=== PATIENT | male | born 1990 | race Caucasian/White ===

== ENCOUNTER 2017-03-29 13:05 | Emergency (ER) | payer BC | END 2017-03-29 13:40 | disposition left against medical advice (07) | LOC: UCEAST 13:05 | DX: H92.09 Otalgia, unspecified ear (principal); Z53.21 Procedure and treatment not carried out due to patient leaving prior to being seen by health care provider ==

== ENCOUNTER 2017-03-29 13:40 | Emergency (ER) | payer BC ==
[2017-03-29 14:32] VITALS: BP 133/79
--- NOTE | 2017-03-29 14:54 | UC ---
Ear Complaint HPI - HPI Summary HPI Summary: C/O ear plugged on right but no pain or fevers. Some congestion, with cough, sore throat is better. - History of Current Complaint Chief Complaint: UCEar Stated Complaint: POSSIBLE EAR INFECTION Time Seen by Provider: 03/29/17 14:48 Hx Obtained From: Patient Onset/Duration: Sudden Onset, Lasting Days - 2, Still Present Severity Initially: Mild Severity Currently: Mild Pain Intensity: 0 Associated Signs/Symptoms: Positive: Hearing Loss, URI Symptoms Related History: Seasonal Allergies - Allergies/Home Medications Allergies/Adverse Reactions: Allergies Allergy/AdvReac Type Severity Reaction Status Date / Time No Known Allergies Allergy Verified 03/29/17 14:29 Home Medications: Home Medications NK [No Home Medications Reported] 03/29/17 [History Confirmed 03/29/17] PMH/Surg Hx/FS Hx/Imm Hx Previously Healthy: Yes Other History Of: Negative For: HIV, Hepatitis B, Hepatitis C - Surgical History Surgical History: Yes Surgery Procedure, Year, and Place: Appendectomy, ear tubes x 2 - Family History Known Family History: Negative: Cardiac Disease, Hypertension, Diabetes, Renal Disease, Seizure Disorder, Blood Disorder - Social History Occupation: Employed Full-time Lives: Dormitory/Roommates Alcohol Use: Weekly Alcohol Amount: 2 beers / day Substance Use Type: None Smoking Status (MU): Never Smoked Tobacco Have You Smoked in the Last Year: No - Immunization History Most Recent Influenza Vaccination: Not the Season Review of Systems ENT: Sore Throat, Ear Ache, Nasal Discharge, Sinus Congestion - pressure but no pain. Respiratory: Cough Is Patient Immunocompromised?: No All Other Systems Reviewed And Are Negative: Yes Physical Exam Triage Information Reviewed: Yes Appearance: Well-Appearing, No Pain Distress, Well-Nourished Vital Signs: Initial Vital Signs Temp 98.5 F 03/29/17 14:28 Pulse 78 03/29/17 14:28 Resp 14 03/29/17 14:28 BP 133/79 03/29/17 14:28 Pulse Ox 97 03/29/17 14:28 Vital Signs Reviewed: Yes Eyes: Positive: Conjunctiva Inflamed - mild ENT: Positive: Pharynx normal, Nasal congestion - with allergic changes, TM bulging - AD Dental Exam: Normal Neck exam: Normal Respiratory Exam: Normal Cardiovascular Exam: Normal Abdominal Exam: Normal Musculoskeletal Exam: Normal Neurological Exam: Normal Psychological Exam: Normal Skin Exam: Normal Ear Complaint Course/Dx - Differential Dx/Diagnosis Differential Diagnosis/HQI/PQRI: Cerumen Impaction, Otitis Externa, Otitis Media , URI Provider Diagnoses: Acute URI. Allergic rhinitis. Eustachian tube dysfunction bilaterally Discharge - Discharge Plan Condition: Stable Disposition: HOME Patient Education Materials: Upper Respiratory Infection (ED), Allergic Rhinitis (ED) Referrals: Non Staff,Doctor [Primary Care Provider] - Additional Instructions: NASAL SPRAYS AND DROPS: Afrin in the PUMP/ MIST bottle (Get generic 12 hours nasal decongestant spray). Tilt your head down and look at the floor while doing a strong sniff with the spray. Decongestant nasal sprays and drops often give dramatic relief from congestion. They are often recommended for patients with sinus infection to assist with sinus drainage. Persons with high blood pressure should consult the doctor before using these nasal sprays. Afrin and Toro-Synephrine are common [id number] preparations. They should not be used for more than five days, as "rebound" congestion can occur - - the congestion flares as the drug wears off. A way of dealing with this rebound congestion problem is to medicate only one nostril each time, allowing the other nostril to recover from the medicine' s effects. When you no longer need the drug during the day, spray only one nostril each night. This helps you sleep well without severe rebound congestion. Call the doctor if you develop severe headache, palpitations, or chest pain. NEILMED SINUS RINSE: CHECK OUT AT [employer] Saline nasal wash helps with mucous, allergies and congestion. It can be used up to twice a day or only as needed. Use lukewarm tap water. It does not have to be sterilized or distilled water. Do 1/3 on each side and snort out of both nostrils. Repeat the process with 1/6 of the bottle on each side with snorting in between to finish the solution in the bottle
== END 2017-03-29 15:09 | disposition home or self-care (01) ==
LOC: UCCORT 13:40
DX: J06.9 Acute upper respiratory infection, unspecified (principal); J30.9 Allergic rhinitis, unspecified; H69.83 Other specified disorders of Eustachian tube, bilateral
CPT/HCPCS: 99211; G0463

== ENCOUNTER 2017-12-14 09:52 | Emergency (ER) | payer BC ==
[2017-12-14 10:31] VITALS: BP 131/62
--- NOTE | 2017-12-14 11:04 | UC ---
Throat Pain/Nasal [place] HPI - HPI Summary HPI Summary: Pt presents with c/o right ear pain, and sudden onset of ST. Pt has hx of OM and has ear tube in right ear. - History of Current Complaint Chief Complaint: UCEar Stated Complaint: SORE THROAT Time Seen by Provider: 12/14/17 10:45 Hx Obtained From: Patient Onset/Duration: Sudden Onset, Lasting Days, Still Present Severity: Moderate Pain Intensity: 0 Cough: None Associated Signs & Symptoms: Positive: Dysphagia Related History: Seasonal Allergies, Other (Noted In Comments) - era tube right ear - Epiglottits Risk Factors Epiglottis Risk Factors: Sudden Onset - Allergies/Home Medications Allergies/Adverse Reactions: Allergies Allergy/AdvReac Type Severity Reaction Status Date / Time No Known Allergies Allergy Verified 12/14/17 10:23 Home Medications: Home Medications Oxymetazoline HCl [Nasal [place]] 0.05 % NA DAILY PRN 12/14/17 [History Confirmed 12/14/17] PMH/Surg Hx/FS Hx/Imm Hx Previously Healthy: Yes Other History Of: Negative For: HIV, Hepatitis B, Hepatitis C - Surgical History Surgical History: Yes Surgery Procedure, Year, and Place: Appendectomy, ear tubes x 2 - Family History Known Family History: Negative: Cardiac Disease, Hypertension, Diabetes, Renal Disease, Seizure Disorder, Blood Disorder - Social History Occupation: Employed Full-time Lives: With Family Alcohol Use: Occasionally Alcohol Amount: 2 beers/day Substance Use Type: None Smoking Status (MU): Never Smoked Tobacco Have You Smoked in the Last Year: No - Immunization History Most Recent Influenza Vaccination: Not the Season Review of Systems Constitutional: Negative Skin: Negative Eyes: Negative ENT: Sore Throat, Ear Ache Respiratory: Negative Cardiovascular: Negative Gastrointestinal: Negative Genitourinary: Negative Motor: Negative Neurovascular: Negative Musculoskeletal: Negative Neurological: Negative Psychological: Negative Is Patient Immunocompromised?: No All Other Systems Reviewed And Are Negative: Yes Physical Exam Triage Information Reviewed: Yes Appearance: Well-Appearing Vital Signs: Initial Vital Signs Temp 99.8 F 12/14/17 10:24 Pulse 108 12/14/17 10:24 Resp 20 12/14/17 10:24 BP 131/62 12/14/17 10:24 Pulse Ox 98 12/14/17 10:24 Vital Signs Reviewed: Yes Eye Exam: Normal ENT: Positive: Pharyngeal erythema, TM bulging - right TM, pustular fluid posterior right TM. ear tube visualized with scant amount of drainage,, Tonsillar swelling, Tonsillar exudate Dental Exam: Normal Neck exam: Normal Respiratory Exam: Normal Cardiovascular Exam: Normal Musculoskeletal Exam: Normal Neurological Exam: Normal Psychological Exam: Normal Skin Exam: Normal Diagnostics - Laboratory Diagnostic Studies Completed/Ordered: rapid strep: negative Throat Pain/Nasal Course/Dx - Differential Dx/Diagnosis Differential Diagnosis/HQI/PQRI: Otitis Media, Sinusitis, Tonsillitis Provider Diagnoses: right ear OM. tonsillitis Discharge - Sign-Out/Discharge Documenting (check all that apply): Patient Departure All imaging exams completed and their final reports reviewed: No Studies - Discharge Plan Condition: Stable Disposition: HOME Prescriptions: Penicillin VK 500 MG TAB(NF) [Penicillin VK 500 mg Tab] 500 mg PO Q6H #40 tab Patient Education Materials: Ear Infection (ED), Tonsillitis (ED) Referrals: [facility] [Outside] - If Needed No Primary Care Phys,NOPCP [Primary Care Provider] - Quinton Werner MD [Medical Doctor] - If Needed - Billing Disposition and Condition Condition: STABLE Disposition: Home
== END 2017-12-14 11:11 | disposition home or self-care (01) ==
LOC: UCCORT 09:52
DX: H66.91 Otitis media, unspecified, right ear (principal); J03.90 Acute tonsillitis, unspecified
CPT/HCPCS: 87651; 99212; G0463

== ENCOUNTER 2017-12-16 07:31 | Emergency (ER) | payer BC ==
[2017-12-16 07:45] VITALS: BP 126/74
--- NOTE | 2017-12-16 07:59 | UC ---
Throat Pain/Nasal [place] HPI - HPI Summary HPI Summary: sore throat x 3 days was seen at the Urgent Care , was placed on Pen VK for tonsillitis and ear infection not getting any better, cont. with right side sore throat and right ear pain no fever, + chills, no cold symptoms no swollen neck glands, no fatigue and no abdominal pain - History of Current Complaint Chief Complaint: UCGeneralIllness Stated Complaint: RECHECK, RT EAR PAIN,TONSIL PAIN Time Seen by Provider: 12/16/17 07:46 Hx Obtained From: Patient Onset/Duration: Gradual Onset, Lasting Days - 3, Still Present Severity: Severe Pain Intensity: 7 Cough: None Associated Signs & Symptoms: Negative: Dysphagia, FB Sensation, Drooling, Wheezing, Hoarseness, Sinus Discomfort, Nasal Discharge, Fever, Vomiting, Rash - Allergies/Home Medications Allergies/Adverse Reactions: Allergies Allergy/AdvReac Type Severity Reaction Status Date / Time No Known Allergies Allergy Verified 12/16/17 07:41 Home Medications: Home Medications Ibuprofen TAB* [Advil TAB*] 600 mg PO Q6H PRN 12/16/17 [History Confirmed ] Penicillin VK 500 MG TAB(NF) [Penicillin VK 500 mg Tab] 1,000 mg PO BID [History Confirmed 12/16/17] PMH/Surg Hx/FS Hx/Imm Hx - Additional Past Medical History Additional PMH: hx of recurrent ear infections Previously Healthy: Yes Other History Of: Negative For: HIV, Hepatitis B, Hepatitis C - Surgical History Surgical History: Yes Surgery Procedure, Year, and Place: Appendectomy, ear tubes x 2 - Family History Known Family History: Negative: Cardiac Disease, Hypertension, Diabetes, Renal Disease, Seizure Disorder, Blood Disorder - Social History Alcohol Use: Daily Alcohol Amount: 2 beers/day Substance Use Type: None Smoking Status (MU): Never Smoked Tobacco Have You Smoked in the Last Year: No - Immunization History Most Recent Influenza Vaccination: Not the 2014/2015 Season Review of Systems Constitutional: Negative Skin: Negative Eyes: Negative ENT: Sore Throat, Ear Ache Respiratory: Negative Cardiovascular: Negative Is Patient Immunocompromised?: No All Other Systems Reviewed And Are Negative: Yes Physical Exam Triage Information Reviewed: Yes Appearance: Well-Appearing, No Pain Distress, Well-Nourished Vital Signs: Initial Vital Signs Temp 98.5 F 12/16/17 07:42 Pulse 116 12/16/17 07:42 Resp 18 12/16/17 07:42 BP 126/74 12/16/17 07:42 Pulse Ox 98 12/16/17 07:42 Vital Signs Reviewed: Yes Eyes: Positive: Conjunctiva Clear ENT: Positive: Normal ENT inspection, Hearing grossly normal, Pharyngeal erythema, TM dull, Tonsillar swelling, Tonsillar exudate. Negative: Nasal congestion, Nasal drainage, TMs normal Neck: Positive: Supple, Nontender, No Lymphadenopathy Respiratory: Positive: Chest non-tender, Lungs clear, Normal breath sounds Cardiovascular: Positive: No Murmur, Tachycardia Abdomen Description: Positive: Nontender, No Organomegaly, Soft. Negative: CVA Tenderness (R), CVA Tenderness (L), Distended, Guarding Bowel Sounds: Positive: Present Skin Exam: Normal Throat Pain/Nasal Course/Dx - Differential Dx/Diagnosis Provider Diagnoses: tonsillitis Discharge - Sign-Out/Discharge Documenting (check all that apply): Patient Departure All imaging exams completed and their final reports reviewed: No Studies - Discharge Plan Condition: Stable Disposition: HOME Prescriptions: Clindamycin Cap(NF) [Clindamycin Cap 300 mg Cap(NF)] 300 mg PO Q6H #40 cap Patient Education Materials: Tonsillitis (ED) Referrals: No Primary Care Phys,NOPCP [Primary Care Provider] - If Needed Additional Instructions: stop Pen VK will start Clinda 4 x per day for 10 days cont. with rest, increase fluid, take Tylenol as needed for pain follow up if not better in 5 days - Billing Disposition and Condition Condition: STABLE Disposition: Home
== END 2017-12-16 08:05 | disposition home or self-care (01) ==
LOC: UCCORT 07:31
DX: J03.90 Acute tonsillitis, unspecified (principal)
CPT/HCPCS: 99212; G0463